=== PATIENT | male | born 1955 | race Hispanic/Latino ===

== ENCOUNTER → 2019-10-10 | Day surgery (SDC) | payer MEDICARE, OTHER ==
[~2019-10-10] MED LIST: CINNAMON500 MG PO; CRESTOR10 MG PO; ETOMIDATE 2 MG/ML 10 ML INJ IV ONE; FENTANYL CITRATE/PF 100MCG/2 ML INJ ONE; GABAPENTIN100 MG PO; GLIMEPIRIDE2 MG PO; LIDOCAINE HCL 2% LOCAL INJ 5 ML SDV VIAL INJ ONE; LOSARTAN POTASS25 MG PO; MIDAZOLAM HCL 2 MG/2 ML VIAL ONE; PROPOFOL IV EMULSION 10 MG/ML 20 ML VIAL ONE; SERTRALINE HCL50 MG PO; SYNJARDY XR 121 EACH PO; VITAMIN B122500 MCG PO; VITAMIN D325 MCG PO
--- NOTE | 2019-10-10 09:07 | Operative Report ---
DATE OF PROCEDURE: SURGEON: Ruddy Marinelli MD NAME OF THE PROCEDURES: EGD and colonoscopy. PREPROCEDURE DIAGNOSIS: The patient with history of dyspepsia, here for colon cancer screening. DESCRIPTION OF PROCEDURE: After informed and written consent, premedications with monitored anesthesia care, standard video Olympus gastroscope was introduced into the mouth, esophagus, stomach into the second portion of the duodenum. The first and second portion of the duodenum appeared to be normal and the mild duodenitis was noted in the duodenal bulb. Antral gastritis was noted and biopsies were done. Retroflexion revealed a moderately sized sliding hiatal hernia. 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 The long segment Briones's and biopsies were done. No erosions or ulcers were noted in the Briones's segment. The pediatric colonoscope was introduced in the rectum and all the way into the terminal ileum. Terminal ileum appeared to be normal. The cecum showed one isolated diverticula. The mid ascending colon showed a 2 cm polyp, which was removed with saline-assisted polypectomy and one Endoclip was applied. There was another 7 mm polyp seen in the hepatic flexure and removed with cold snare. Descending sigmoid showed scattered diverticulosis. The rectum showed another diminutive polyp and removed by cold biopsy forceps. IMPRESSION: 1. Colon polyps. 2. Diverticulosis. 3. Briones's esophagus. 4. Hiatal hernia. 5. Gastritis. 6. Duodenitis. RECOMMENDATIONS: Avoid aspirin and NSAIDs for two weeks. Colonoscopy in three years if biopsies are good. EGD in one to two years for surveillance of Briones's. GERD precautions. PPI as needed. Further recommendations will be based on the patient's clinical course. Ruddy Marinelli MD SR/MODL /[id number]
[2019-10-10 09:10] VITALS: BP 150/88
== END | disposition home or self-care (01) ==
LOC: OR 05:58 → EDSEX 07:30
PROVIDERS: ATTEND Internal Medicine Gastroenterology
DX: D12.2 Benign neoplasm of ascending colon (principal); K29.70 Gastritis, unspecified, without bleeding; K62.1 Rectal polyp; K29.80 Duodenitis without bleeding; K22.70 Barrett's esophagus without dysplasia; K44.9 Diaphragmatic hernia without obstruction or gangrene; K57.30 Diverticulosis of large intestine without perforation or abscess without bleeding; I10 Essential (primary) hypertension; E11.9 Type 2 diabetes mellitus without complications; E66.01 Morbid (severe) obesity due to excess calories; Z71.3 Dietary counseling and surveillance; K76.0 Fatty (change of) liver, not elsewhere classified; E78.5 Hyperlipidemia, unspecified; Z11.59 Encounter for screening for other viral diseases; Z68.41 Body mass index [BMI] 40.0-44.9, adult; Z87.891 Personal history of nicotine dependence; Z83.3 Family history of diabetes mellitus; Z82.49 Family history of ischemic heart disease and other diseases of the circulatory system
CPT/HCPCS: 36415; 43239; 45380; 45385; 82948; 87635; 93005; J2001; J2250; J2704; J3010